=== PATIENT | male | born 1960 | race Caucasian/White ===

== ENCOUNTER 2016-05-18 13:53 | Inpatient (IN) | payer BC ==
[2016-05-18 13:53] VITALS: BMI 37.8
--- NOTE | 2016-05-18 14:27 | ED PDOC ---
Arrival/HPI - General Chief Complaint: Abnormal Skin Integrity Time Seen by Provider: 05/18/16 14:09 Historian: Patient - History of Present Illness Narrative History of Present Illness (Text): 05/18/16 14:25 55yo male with PMhx significant for hypertension, diabetes and hypercholestrol who present with 4days history of worsening scrotal pain and redness. He reports fever. He notes that his symptoms started after scratching the area with his dirty hands. 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 States he did not take any medication. denies abdominal pain, nausea, vomiting, diarrhea, constipation, chest pain, urinary symptoms, any other complaint. Past Medical History - Provider Review Nursing Documentation Reviewed: Yes - Past History Past History: Non-Contributing - Infectious Disease Hx of Infectious Diseases: None - Cardiac Hx Hypertension: Yes - Endocrine/Metabolic Hx Diabetes Mellitus Type 2: Yes - Musculoskeletal/Rheumatological Hx Falls: No - Psychiatric Hx Psychophysiologic Disorder: No Hx Anxiety: No Hx Bipolar Disorder: No Hx Depression: No Hx Emotional Abuse: No Hx Hallucinations: No Hx Panic Disorder: No Hx Post Traumatic Stress Disorder: No Hx Psychosis: No Hx Physical Abuse: No Hx Schizophrenia: No Hx Sexual Abuse: No Hx Substance Use: No - Anesthesia Hx Anesthesia Reactions: No Hx Malignant Hyperthermia: No Family/Social History - Physician Review Nursing Documentation Reviewed: Yes Family/Social History: Unknown Family HX Smoking Status: Never Smoked Hx Alcohol Use: No Hx Substance Use: No Allergies/Home Meds Allergies/Adverse Reactions: Allergies No Known Allergies Allergy (Verified 05/18/16 20:38) Home Medications: Home Meds Medication Instructions Recorded Confirmed Aspirin [Ecotrin] 81 mg PO DAILY 05/18/16 05/18/16 Atenolol [Tenormin] 50 mg PO DAILY 05/18/16 05/18/16 Lisinopril [Zestril] 20 mg PO DAILY 05/18/16 05/18/16 Omeprazole 20 mg PO DAILY 05/18/16 05/18/16 metFORMIN [glucOPHAGE] 1,000 mg PO BID 05/18/16 05/18/16 Review of Systems - Physician Review All systems were reviewed & negative as marked: Yes - Review of Systems Constitutional: Normal Eyes: Normal ENT: Normal Respiratory: Normal Cardiovascular: Normal Gastrointestinal: Normal Genitourinary Male: Other (Scrotal pain/swelling). absent: Dysuria, Frequency, Hematuria Musculoskeletal: Normal Skin: Normal Neurological: Normal Endocrine: Normal Hemo/Lymphatic: Normal Psychiatric: Normal Physical Exam Vital Signs Reviewed: Yes Vital Signs Temp Pulse Resp BP Pulse Ox 05/18/16 20:02 99.5 F 05/18/16 19:58 84 16 137/76 96 05/18/16 17:59 64 18 125/69 97 05/18/16 16:48 99.8 F H 60 17 129/73 97 05/18/16 15:26 91 H 18 138/79 97 05/18/16 13:58 101.2 F H 99 H 16 142/87 97 Temperature: Febrile Blood Pressure: Normal Respiratory Rate: Normal Appearance: Positive for: Well-Appearing, Non-Toxic, Comfortable Pain Distress: None Mental Status: Positive for: Alert and Oriented X 3 - Systems Exam Head: Present: Atraumatic, Normocephalic Pupils: Present: PERRL Extroacular Muscles: Present: EOMI Conjunctiva: Present: Normal Mouth: Present: Moist Mucous Membranes Neck: Present: Normal Range of Motion Respiratory/Chest: Present: Clear to Auscultation, Good Air Exchange. No: Respiratory Distress, Accessory Muscle Use Cardiovascular: Present: Regular Rate and Rhythm, Normal S1, S2. No: Murmurs Abdomen: Present: Normal Bowel Sounds. No: Tenderness, Distention, Peritoneal Signs Genitourinary Male: Present: Testicle Tenderness, Erythema (Testicular eythema with induration on b/l area. No crepitus. No gangrene noted), Testicle Swelling Back: Present: Normal Inspection Upper Extremity: Present: Normal Inspection. No: Cyanosis, Edema Lower Extremity: Present: Normal Inspection. No: Edema Neurological: Present: GCS=15, CN II-XII Intact, Speech Normal Skin: Present: Warm, Dry, Normal Color. No: Rashes Psychiatric: Present: Alert, Oriented x 3, Normal Insight, Normal Concentration Medical Decision Making ED Course and Treatment: 05/20/16 19:14 Pt presented for stated history. He was febrile on arrival. Notes multiple co morbidities. Have leukocytosis with a shift. He was admitted for IV abx. Case was DW Dr. Palma who was covering for Dr. Giraldo and pt was admitted. Pt was also seen in ED by Dr. Santillan. Result and plan was DW the pt and he agreed. - Lab Interpretations Microbiology Results: Microbiology Results 05/18/16 15:00 Blood-Venous Blood Culture - Preliminary NO GROWTH AFTER 48 HOURS 05/18/16 14:30 Blood-Venous Blood Culture - Preliminary NO GROWTH AFTER 48 HOURS Lab Results: 05/18/16 15:00 05/18/16 15:00 Lab Results 05/18/16 15:00: WBC 15.7 H D, RBC 4.70, Hgb 12.4 L, Hct 37.1 L, MCV 78.9 L, MCH 26.4, MCHC 33.4, RDW 14.3, Plt Count 238, MPV 10.8, Gran % 81.8 H, Lymph % (Auto ) 7.8 L, [place] % (Auto) 9.7 H, Eos % (Auto) 0.6 L, Baso % (Auto) 0.1, Gran # 12.85 H, Lymph # 1.2, [place] # 1.5 H, Eos # 0.1, Baso # 0.02, Sodium 138, Potassium 4.0, Chloride 98, Carbon Dioxide 27, Anion Gap 17, BUN 17, Creatinine 0.7, Est GFR ( Amer) > 60, Est GFR (Non-Af Amer) > 60, Random Glucose 170 H, Calcium 9.0, Total Bilirubin 1.5 H, AST 34, ALT 33, Alkaline Phosphatase 87, Total Protein 8.0, Albumin 4.0, Globulin 4.0, Albumin/Globulin Ratio 1.0 L, Urine Color Yellow, Urine Appearance Clear, Urine pH 6.0, Ur Specific [place] 1.025, Urine Protein 30 H, Urine Glucose (UA) 250 H, Urine Ketones Trace H, Urine Blood Negative, Urine Nitrate Negative, Urine Bilirubin Negative, Urine Urobilinogen 4.0 H, Ur Leukocyte Esterase Negative, Urine RBC Negative, Urine WBC 1 - 3, Urine Bacteria Few - RAD Interpretation Radiology Orders: 05/18/16 14:19 TESTES DUPLEX COMPLETE [US] Stat - Medication Orders Current Medication Orders: Aspirin (Ecotrin) 81 mg PO DAILY [facility] Last Admin: 05/20/16 09:32 Dose: 81 MG Atenolol (Tenormin) 50 mg PO DAILY [facility] Last Admin: 05/20/16 09:32 Dose: 50 MG MAR Pulse and Blood Pressure Document 05/20/16 09:32 EP (Rec: 05/20/16 09:35 EP [id number]) Pulse Pulse Rate (60-90) 87 Blood Pressure Blood Pressure (100/60-150/90) 167/87 Sodium Chloride (Sodium Chloride 0.45%) 1,000 mls @ 40 mls/hr IV .Q24H [facility] Last Admin: 05/20/16 12:32 Dose: Ceftaroline Fosamil 400 mg/ (Sodium Chloride) 100 mls @ 100 mls/hr IVPB Q12 [facility] PRN Reason: Protocol Stop: 05/26/16 22:16 Last Admin: 05/20/16 03:19 Dose: 100 MLS/HR eMAR Start Stop Document 05/20/16 03:19 MJ (Rec: 05/20/16 03:19 MJ [id number]) Intravenous Solution Start Date 05/20/16 Start Time 00:40 Insulin Human Regular (Humulin R High) 0 units SC ACHS [facility] PRN Reason: Protocol Last Admin: 05/20/16 16:51 Dose: Not Given Non-Admin Reason: Blood Sugar Parameter [facility] Blood Glucose Document 05/20/16 16:51 EP (Rec: 05/20/16 16:51 EP [id number]) Blood Glucose Finger Stick Blood Glucose (70-120) 149 Lisinopril (Zestril) 20 mg PO DAILY [facility] Last Admin: 05/20/16 09:32 Dose: 20 MG Metformin HCl (Glucophage) 1,000 mg PO BID [facility] Last Admin: 05/20/16 17:37 Dose: 1,000 MG Morphine Sulfate (Morphine) 2 mg IVP Q4H PRN PRN Reason: Pain, moderate (4-7) Last Admin: 05/20/16 07:52 Dose: 2 MG [facility] Pain Assessment Document 05/20/16 07:52 EP (Rec: 05/20/16 07:52 EP [id number]) Pain Reassessment Is this a pain reassessment? No Sleep Is patient sleeping during reassessment? No Presence of Pain Presence of Pain Yes Pain Scale Used Pain Scale Used Numeric Description Description Intermittent Intensity of Pain at present 6 Pain Behavior Restlessness Aggravating Factors ADL's Alleviating Factors/Management Medication Techniques IVP Administration Document 05/20/16 07:52 EP (Rec: 05/20/16 07:52 EP [id number]) Charges for Administration # of IVP Administrations 1 Re-Assess: VIVIAN Pain Assessment Document 05/20/16 08:52 EP (Rec: 05/20/16 09:32 EP [id number]) Pain Reassessment Is this a pain reassessment? Yes Sleep Is patient sleeping during reassessment? No Presence of Pain Presence of Pain No Pantoprazole Sodium (Protonix Ec Tab) 40 mg PO DAILY [facility] Last Admin: 05/20/16 09:32 Dose: 40 MG Sitagliptin Phosphate (Januvia) 100 mg PO DAILY [facility] Last Admin: 05/20/16 09:32 Dose: 100 MG Discontinued Medications Acetaminophen (Tylenol 325mg Tab) 650 mg PO STAT STA Stop: 05/18/16 14:23 Last Admin: 05/18/16 15:00 Dose: 650 MG Ceftriaxone Sodium (Rocephin 1 Gram Ivpb) 100 mls @ 200 mls/hr IVPB STAT STA PRN Reason: Protocol Stop: 05/18/16 17:22 Last Admin: 05/18/16 17:10 Dose: 200 MLS/HR eMAR Start Stop Document 05/18/16 17:10 SF (Rec: 05/18/16 17:10 SF [id number]) Intravenous Solution Start Date 05/18/16 Start Time 17:10 End Date 05/18/16 End time 17:40 Total Infusion Time 30 Vancomycin HCl (Vancomycin 1gm) 250 mls @ 167 mls/hr IVPB STAT STA PRN Reason: Protocol Stop: 05/18/16 18:19 Last Admin: 05/18/16 17:49 Dose: 167 MLS/HR eMAR Start Stop Document 05/18/16 17:49 SF (Rec: 05/18/16 17:49 SF [id number]) Intravenous Solution Start Date 05/18/16 Start Time 17:49 End Date 05/18/16 End time 18:19 Total Infusion Time 30 Ceftriaxone Sodium (Rocephin 1 Gram Ivpb) 100 mls @ 100 mls/hr IVPB DAILY [facility] PRN Reason: Protocol Last Admin: 05/19/16 10:33 Dose: 100 MLS/HR eMAR Start Stop Document 05/19/16 10:33 MB (Rec: 05/19/16 10:34 MB [id number]) Intravenous Solution Start Date 05/19/16 Start Time 10:33 End Date 05/19/16 End time 11:33 Total Infusion Time 60 Morphine Sulfate (Morphine) 4 mg IVP STAT STA Stop: 05/18/16 16:55 Last Admin: 05/18/16 17:09 Dose: 4 MG MAR Pain Assessment Document 05/18/16 17:09 (Rec: 05/18/16 17:10 [id number] Pain Reassessment Is this a pain reassessment? Yes Pain Scale Used Pain Scale Used Numeric IVP Administration Document 05/18/16 17:09 SF (Rec: 05/18/16 17:10 [email or web address]) Charges for Administration # of IVP Administrations 1 Pneumococcal Polyvalent Vaccine (Pneumovax 23 Vaccine) 0.5 ml IM .ONCE ONE Stop: 05/18/16 22:51 Disposition/Present on Arrival - Present on Arrival Any Indicators Present on Arrival: No History of DVT/PE: No History of Uncontrolled Diabetes: No Urinary Catheter: No History of Decub. Ulcer: No History Surgical Site Infection Following: None - Disposition Have Diagnosis and Disposition been Completed?: Yes Diagnosis: Cellulitis Disposition: HOSPITALIZED Disposition Time: 16:05 Patient Problems: Current Active Problems Problem Status Diagnosed Cellulitis Acute Condition: FAIR
[2016-05-18 15:40] LABS: ADD MANUAL DIFF? NO
[2016-05-18 15:50] LABS: BASO # 0.02 K/mm3 (0.0-2.0); BASO % 0.1 % (0.0-3.0); EOS # 0.1 (0.0-0.7); EOS % 0.6 % (1.5-5.0); GRAN # 12.85 (1.4-6.5); GRAN % 81.8 % (50.0-68.0); HEMATOCRIT 37.1 % (42.0-52.0); LYMPH # 1.2 (1.2-3.4); LYMPH % 7.8 % (22.0-35.0); MEAN CELL VOLUME 78.9 fL (80.0-105.0); MEAN CORPUSCULAR HEMOGLOBIN 26.4 pg (25.0-35.0); MEAN CORPUSCULAR HGB CONC 33.4 g/dl (31.0-37.0); MEAN PLATELET VOLUME 10.8 fl (7.0-11.0); MONO # 1.5 (0.1-0.6); MONO % 9.7 % (1.0-6.0); PLATELET COUNT 238 10^3/uL (120.0-450.0); RED CELL DISTRIBUTION WIDTH 14.3 % (11.5-14.5); WHITE BLOOD COUNT 15.7 10^3/ul (4.5-11.0)
[2016-05-18 15:54] LABS: URINE BILIRUBIN NEGATIVE (NEGATIVE); URINE BLOOD NEGATIVE (NEGATIVE); URINE GLUCOSE (UA) 250 mg/dL (NEGATIVE); URINE KETONE TRACE mg/dL (NEGATIVE); URINE LEUKOCYTE ESTERASE NEGATIVE Leu/uL (NEGATIVE); URINE PROTEIN 30 mg/dL (<30 mg/dL)
[2016-05-18 15:57] LABS: URINE APPEARANCE CLEAR (CLEAR); URINE COLOR YELLOW (YELLOW)
[2016-05-18 16:04] LABS: ALKALINE PHOSPHATASE 87 U/L (38-133); ALT/SGPT 33 U/L (7-56); AST/SGOT 34 U/L (15-59); BILIRUBIN,TOTAL 1.5 mg/dL (0.2-1.3); BLOOD UREA NITROGEN 17 mg/dL (7-21); CARBON DIOXIDE 27 mmol/L (21-33); CHLORIDE 98 mmol/L (98-107); GFR AFRICAN-AMERICAN > 60; GLUCOSE,RANDOM 170 mg/dL (70-110); SODIUM 138 mmol/L (132-148)
[2016-05-18 16:07] LABS: URINE BACTERIA FEW (NEG); URINE RBC NEGATIVE /hpf (0-2)
--- NOTE | 2016-05-18 16:22 | US ---
HISTORY: scrotal pain/swelling TECHNIQUE: Realtime sonography through the scrotum with color and doppler flow. COMPARISON: None Available. FINDINGS: RIGHT TESTICLE: Measures 4.6 x 4.0 x 2.9 cm. Homogeneous echotexture. No mass. Normal flow. RIGHT EPIDIDYMIS: Normal size and morphology. Normal flow. LEFT TESTICLE: Measures 3.5 x 2.9 x 2.9 cm. Homogeneous echotexture. No mass. Normal flow. . LEFT EPIDIDYMIS: Normal size and morphology. HYDROCELE: Mild bilateral complex hydrocele. VARICOCELE: None. OTHER FINDINGS: None. IMPRESSION: Mild bilateral complex hydrocele. No additional abnormality. No evidence of testicular torsion or epididymo-orchitis.
[2016-05-18] MEDS ORDERED: Vancomycin 1gm in NS 250ml 250 ML IVPB STA (16:50)
[2016-05-18] MEDS ORDERED: cefTRIAXone 1 gm 100 ML IVPB STA (16:53)
[2016-05-18] MEDS ORDERED: Morphine 4 mg/ml ISec IVP STA (16:54)
--- NOTE | 2016-05-18 19:53 | CON ---
DATE: 05/18/2016 HISTORY OF PRESENT ILLNESS: The patient is a 55-year-old non-insulin dependent diabetic with a histo ry of hypertension and high cholesterol. He had 4 days of scrotal pain and swelling. He said he had been scratching the scrotum. He now came in with a white count of 15,000. No prior urologic histor y. He voids well, although he does complain of having phimosis. PAST MEDICAL HISTORY: Significant for hypertension, type 2 diabetes. ALLERGIES: He has no allergies. MEDICATIONS: At home he takes metformin, omeprazole, Zestril, Tenormin and Ecotrin. FAMILY HISTORY: Noncontributory. SOCIAL HISTORY: He does not smoke or drink. REVIEW OF SYSTEMS: No symptoms referable to the head, eyes, ears, nose or throat. No cardiac, respi ratory symptoms. No GI symptoms. No psychiatric or musculoskeletal symptoms. PHYSICAL EXAMINATION: VITAL SIGNS: Shows him to be a temperature of 101.2 when he came in. Pulse 64, blood pressure 125/6 9, respirations 18. HEENT: Normocephalic, sclerae clear. Conjunctivae not injected. ABDOMEN: No CVA pain. No hepatosplenomegaly, rebound or guarding. No suprapubic fullness. GENITALIA: He has phimosis. Testicles down. Scrotum has no crepitus and no necrotic areas. There is some induration and cellulitis on the right lateral aspect of the right scrotal wall on the left s mick, similar finding on the lateral aspect. There was a very tiny area of fluctuance. LABORATORY DATA: Shows a white count 15,700, creatinine is 0.7. His urine shows 250 mg of glucose, negative red cells, 1-3 WBCs. He is on Rocephin, received 1 gram of vancomycin. IMPRESSION: This is scrotal cellulitis. I think it will improve with IV antibiotics. The area on t he left side may need drainage, but right now it is very small and I will see how it is in [facility]. We will follow him with you. Julio Fischer MD cc: [id number] TT: 05/18/2016 19:52:03 Confirmation # [id number] Dictation # [id number] jn
[2016-05-18] MEDS ORDERED: Pneumococcal 23-Valent Vaccine IM ONE (22:50)
[2016-05-19] MEDS ORDERED: cefTRIAXone 1 gm 100 ML IVPB SCH (10:00)
--- NOTE | 2016-05-19 10:37 | PN ---
DATE: 05/19/2016 The patient is feeling much more comfortable after 24 hours of IV antibiotics. He is afebrile. He h as less tenderness in the scrotum. The scrotum itself shows no erythema, no crepitus, no discolorati on or any evidence of any necrotic tissue. There is still induration on the right and left lateral a spects of the scrotum, but much less tender. There is a very tiny fluctuant area on the left side th at I do not think requires any drainage at this time. He will continue having Sitz baths. White cou nt is reported for tomorrow. If he continues to do well, he should be able to be discharged on p.o. antibiotics. If I feel when I see him tomorrow that the area of fluctuance needs to be opened, I peggy l just berta it at the bedside. A testicular ultrasound was done and showed the testicles themselves to be normal. I do not think there is any intratesticular pathology going on here, just the celluli tis from the patient having scratched his scrotum and causing a cellulitis. We will follow him with you. Julio Fischer MD cc: [phone] TT: 05/19/2016 10:37:28 Confirmation # [id number] Dictation # [id number] en
[2016-05-19] MEDS: Sodium Chloride 0.45% 1,000 ML IV SCH (10:50)
--- NOTE | 2016-05-19 11:04 | HP ---
I saw him resting in bed at [facility]. He comes in being a 55-year-old man. Reports fe marielena, scratching in the scrotal area with dirty hands from work. 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 His testicles are inflamed, got red and painful. PAST MEDICAL HISTORY: Hypertension, diabetes, high cholesterol, and now has worsening scrotal pain, redness, and swelling. He has had hypertension, type 2 diabetes. He is very uncomfortable. He has hypertension and diabetes in the family. Never smoked. No drinking, no alcohol. He has no drug allergies. He takes Ecotrin, Tenormin, Zestril, omeprazole, and Glucophage. He has no vision changes, no hearing changes. No sore throat. No neck pain. No dizziness, no heada edita. No chest pain, no shortness of breath, no palpitations. No cough and no congestion, no fever. No abdominal pain, but there is scrotal swelling, and redness and pain in his scrotum from where he scratched. He has got no extremity issues. Skin is okay except for the scrotal area. He has no dizz iness or headaches. No depression, anxiety. PHYSICAL EXAMINATION: He has got a 101.2 temp, 99 pulse, 16 respiratory rate, 142/87 blood pressure, 97% O2 sat on room air . HEAD: Atraumatic, normocephalic. His extraocular muscles are intact. Pupils equal, reactive to lig ht and accommodation. Throat is moist, no erythema. HEART: Regular rate. LUNGS: Clear to auscultation. ABDOMEN: Soft, obese, nontender, positive bowel. He is alert and oriented x 3. Extraocular muscles are intact. His scrotal area is swollen and red. It is tender. It has areas of tenderness and swelling. EXTREMITIES: Have no edema. GCS is 15. Cranial nerves II-XII grossly intact. Alert and oriented x 3. He had a 15.7 white count, 12.4 hemoglobin, 37.1 hematocrit, with 238 platelets. He has a 138 sodium , potassium 4, BUN 17, creatinine 0.7. GFR is greater than 60. Sugar is 230 and 270. I put him mikayla k on his medications and insulin coverage. Calcium is 9, total bili is 1.5. AST is 34, ALT is 33, a lk phos is 87, total protein is 8. Urine is trace ketones. He had a testicular ultrasound which showed mild bilateral complex hydrocele. No additional abnormal ity. No torsion. He will have a consult with urology and infectious disease, we put on IV antibiotics. He is on vanco and Rocephin. Will check his labs tomorrow. IV fluids. Hopefully, he will improve. I put him on insulin coverage. Jay Giraldo DO cc: [id number] TT: 05/19/2016 11:03:26 jn
[2016-05-19] MEDS: Insulin Reg-HIGH-Coverage SC SCH ×3 (16:41→22:38)
[2016-05-19] MEDS: Morphine 2 mg/ml ISec IVP PRN (17:36)
--- NOTE | 2016-05-19 22:22 | CP.PCM.CON ---
History of Present Illness - History of Present Illness History of Present Illness: 55 year old male with PMH of HTN, DM, dyslipidemia, obesity with BMI 38, history of MSSA left upper back abscess S/P I and D came in complaining of increasing scrotal swelling, right more than the left, associated with erythema which started about 4-5 days ago. 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 He remembers a time when he scratched his scrotal area with unwashed hands. He denies animal contacts, no insect bites , no travel to wooded areas, no swimming. He denies fever or chills, no urinary symptoms, no penile discharge, no nausea or vomiting, no chest pain, no SOB, no diarrhea. Infectious Diseases consult is requested to further evaluate and manage. Review of Systems - Review of Systems All systems: reviewed and no additional remarkable complaints except (as per HPI ) Past Patient History - Infectious Disease Hx of Infectious Diseases: None - Past Social History Smoking Status: Current Some Days Smoker Alcohol: Occasional Drugs: Denies Home Situation {Lives}: With Family - CARDIAC Hx Cardiac Disorders: Yes Hx Hypercholesterolemia: Yes Hx Hypertension: Yes - PULMONARY Hx Respiratory Disorders: Yes (SMOKES 2 PPD CIGARETTES) - NEUROLOGICAL Hx Neurological Disorder: No - HEENT Hx HEENT Problems: No - RENAL Hx Chronic Kidney Disease: No - ENDOCRINE/METABOLIC Hx Endocrine Disorders: Yes Hx Diabetes Mellitus Type 2: Yes - HEMATOLOGICAL/ONCOLOGICAL Hx Blood Disorders: No - INTEGUMENTARY Hx Dermatological Problems: Yes (CHRONIC ABSCESSES TO BACK,RIGHT THIGH.) - MUSCULOSKELETAL/RHEUMATOLOGICAL Hx Musculoskeletal Disorders: No Hx Falls: No - GASTROINTESTINAL Hx Gastrointestinal Disorders: Yes Hx Gastroesophageal Reflux: Yes - GENITOURINARY/GYNECOLOGICAL Hx Genitourinary Disorders: Yes Hx Prostate Problems: Yes (SCROTAL CELLULITIS 05-18-16) - PSYCHIATRIC Hx Psychophysiologic Disorder: Yes (SMOKES CIGARETTES,DRINKS BEER WEEKENDS) Hx Anxiety: No Hx Bipolar Disorder: No Hx Depression: No Hx Emotional Abuse: No Hx Hallucinations: No Hx Panic Symptoms: No Hx Post Traumatic Stress Disorder: No Hx Psychosis: No Hx Physical Abuse: No Hx Schizophrenia: No Hx Sexual Abuse: No Hx Substance Use: No - SURGICAL HISTORY Hx Surgeries: No - ANESTHESIA Hx Anesthesia Reactions: No Hx Malignant Hyperthermia: No Meds Allergies/Adverse Reactions: Allergies Allergy/AdvReac Type Severity Reaction Status Date / Time No Known Allergies Allergy Verified 05/18/16 20:38 - Medications Medications: Current Medications Aspirin (Ecotrin) 81 mg PO DAILY [facility] Atenolol (Tenormin) 50 mg PO DAILY [facility] Ceftriaxone Sodium (Rocephin 1 Gram Ivpb) 100 mls @ 100 mls/hr IVPB DAILY [facility] PRN Reason: Protocol Sodium Chloride (Sodium Chloride 0.45%) 1,000 mls @ 40 mls/hr IV .Q24H [facility] Insulin Human Regular (Humulin R High) 0 units SC ACHS [facility] PRN Reason: Protocol Lisinopril (Zestril) 20 mg PO DAILY [facility] Metformin HCl (Glucophage) 1,000 mg PO BID [facility] Morphine Sulfate (Morphine) 2 mg IVP Q4H PRN PRN Reason: Pain, moderate (4-7) Pantoprazole Sodium (Protonix Ec Tab) 40 mg PO DAILY [facility] Sitagliptin Phosphate (Januvia) 100 mg PO DAILY [facility] Physical Exam - Constitutional Appears: Non-toxic, No Acute Distress - Head Exam Head Exam: NORMAL INSPECTION - ENT Exam ENT Exam: Mucous Membranes Moist - Neck Exam Neck exam: Negative for: Lymphadenopathy, Meningismus - Respiratory Exam Respiratory Exam: Decreased Breath Sounds - Cardiovascular Exam Cardiovascular Exam: +S1, +S2 - GI/Abdominal Exam GI & Abdominal Exam: Soft. absent: Tenderness - Exam Exam: Scrotal Swelling (right greater than left, with erythema and tenderness noted) Results - Vital Signs Recent Vital Signs: Last Vital Signs Temp 98.9 F 05/19/16 08:00 Pulse 96 H 05/19/16 08:00 Resp 20 05/19/16 08:00 BP 135/76 05/19/16 08:00 Pulse Ox 96 05/19/16 08:00 - Labs Result Diagrams: 05/18/16 15:00 05/18/16 15:00 Labs: Laboratory Results - last 24 hr 05/18/16 05/19/16 21:44 07:22 POC Glucose (mg/dL) 230 H 270 H Assessment & Plan - Assessment and Plan (Free Text) Plan: Assessment Sepsis secondary to scrotal skin and skin structure infection; no evidence of epidydimo-orchitis HTN DM dyslipidemia obesity with BMI 38 history of MSSA left upper back abscess S/P I and D Plan Started the patient on Teflaro pending blood cx; reviewed ultrasound of the testes which did not show epidydimo-orchitis Will monitor clinical response
[2016-05-20] MEDS: Morphine 2 mg/ml ISec IVP PRN ×3 (03:20→21:56)
[2016-05-20 07:40] LABS: HEMATOCRIT 36.6 % (42.0-52.0); MEAN CELL VOLUME 79.4 fL (80.0-105.0); MEAN CORPUSCULAR HGB CONC 32.8 g/dl (31.0-37.0); MEAN PLATELET VOLUME 10.6 fl (7.0-11.0); RED CELL DISTRIBUTION WIDTH 14.3 % (11.5-14.5)
[2016-05-20 07:46] LABS: ALB/GLOB RATIO 0.9 (1.1-1.8); ALKALINE PHOSPHATASE 86 U/L (38-133); ALT/SGPT 31 U/L (7-56); AST/SGOT 25 U/L (15-59); BLOOD UREA NITROGEN 13 mg/dL (7-21); CALCIUM 8.8 mg/dL (8.4-10.5); CARBON DIOXIDE 29 mmol/L (21-33); CHLORIDE 101 mmol/L (95-110); GFR AFRICAN-AMERICAN > 60; GLUCOSE,RANDOM 138 mg/dL (70-110); POTASSIUM 4.2 mmol/L (3.6-5.0); SODIUM 138 mmol/L (132-148); TOTAL PROTEIN 7.6 g/dL (5.8-8.3)
[2016-05-20] MEDS: Insulin Reg-HIGH-Coverage SC SCH ×4 (07:53→21:51)
[2016-05-20] MEDS: Pantoprazole 40 mg EC Tab PO SCH (09:32)
--- NOTE | 2016-05-20 09:56 | PN ---
DATE: 05/20/2016 The patient seen and examined at bedside. Currently, at this point he is tolerating IV antibiotics. He still has some discomfort to the scrotal area and has been having fevers and chills over the cour se at night. PHYSICAL EXAMINATION: VITAL SIGNS: Blood pressure at this point is 136/80, pulse rate of 87, temperature is 98.7, O2 satur ation is 97 on room air. HEENT: Normocephalic, atraumatic. [place] conjunctivae, nonicteric sclerae. NECK: No JVD. No thyromegaly. CARDIOVASCULAR: Regular rate and rhythm. S1, S2 appreciated. ABDOMEN: Soft, nontender. Positive bowel sounds. There is erythema to the scrotal area and is swol ingrid and tender. EXTREMITIES: Peripheral pulses +2 with no pitting edema. LABORATORY DATA: WBCs are still elevated at 13.0, hemoglobin of 12.2, hematocrit of 36.6, platelets of 261. Chemistry and LFTs within normal limits. Blood cultures at this point finally appear to be negative. ASSESSMENT: 1. Scrotal cellulitis. 2. Hypertension. 3. Diabetes mellitus. 4. Elevated lipids. 5. Recurrent fevers and chills. We will continue to follow this patient very closely with IV fluids as well as pain management and no sheila that the ID doctor has changed his medication to Teflaro. Will follow very closely. Salty Palma MD cc: [id number] TT: 05/20/2016 09:55:19 Confirmation # [id number] Dictation # [id number]
[2016-05-20] MEDS: Sodium Chloride 0.45% 1,000 ML IV SCH (12:32)
--- NOTE | 2016-05-20 15:40 | CP.PCM.PN ---
Subjective - Date & Time of Evaluation Date of Evaluation: 05/20/16 Time of Evaluation: 14:55 - Subjective Subjective: Comfortable in bed, not in distress, less swelling and pain in the scrotal area but still feels pressure. No fevers overnight. Objective - Vital Signs/Intake and Output Vital Signs (last 24 hours): Temp Pulse Resp BP Pulse Ox 98.5 F 87 20 167/87 H 97 05/20/16 07:45 05/20/16 09:32 05/20/16 07:45 05/20/16 09:32 05/20/16 07:45 Intake and Output: 05/20/16 05/20/16 06:59 18:59 Intake Total 420 620 Balance 420 620 - Medications Medications: Current Medications Aspirin (Ecotrin) 81 mg PO DAILY [facility] Last Admin: 05/20/16 09:32 Dose: 81 mg Atenolol (Tenormin) 50 mg PO DAILY [facility] Last Admin: 05/20/16 09:32 Dose: 50 mg Sodium Chloride (Sodium Chloride 0.45%) 1,000 mls @ 40 mls/hr IV .Q24H [facility] Last Admin: 05/20/16 12:32 Dose: Not Given Ceftaroline Fosamil 400 mg/ (Sodium Chloride) 100 mls @ 100 mls/hr IVPB Q12 [facility] PRN Reason: Protocol Stop: 05/26/16 22:16 Last Admin: 05/20/16 03:19 Dose: 100 mls/hr Insulin Human Regular (Humulin R High) 0 units SC ACHS [facility] PRN Reason: Protocol Last Admin: 05/20/16 12:23 Dose: 2 units Lisinopril (Zestril) 20 mg PO DAILY [facility] Last Admin: 05/20/16 09:32 Dose: 20 mg Metformin HCl (Glucophage) 1,000 mg PO BID [facility] Last Admin: 05/20/16 09:32 Dose: 1,000 mg Morphine Sulfate (Morphine) 2 mg IVP Q4H PRN PRN Reason: Pain, moderate (4-7) Last Admin: 05/20/16 07:52 Dose: 2 mg Pantoprazole Sodium (Protonix Ec Tab) 40 mg PO DAILY [facility] Last Admin: 05/20/16 09:32 Dose: 40 mg Sitagliptin Phosphate (Januvia) 100 mg PO DAILY [facility] Last Admin: 05/20/16 09:32 Dose: 100 mg - Labs Labs: 05/20/16 07:29 05/20/16 07:29 - Constitutional Appears: Non-toxic, No Acute Distress - Head Exam Head Exam: NORMAL INSPECTION - ENT Exam ENT Exam: Mucous Membranes Moist - Neck Exam Neck Exam: absent: Lymphadenopathy, Meningismus - Respiratory Exam Respiratory Exam: Decreased Breath Sounds - Cardiovascular Exam Cardiovascular Exam: +S1, +S2 - GI/Abdominal Exam GI & Abdominal Exam: Soft. absent: Tenderness - Exam Exam: Scrotal Swelling (decreased, still with some induration noted on the right scrotal area) Assessment and Plan - Assessment and Plan (Free Text) Plan: Assessment Sepsis secondary to scrotal skin and skin structure infection; no evidence of epidydimo-orchitis HTN DM dyslipidemia obesity with BMI 38 history of MSSA left upper back abscess S/P I and D Plan Started the patient on Teflaro day 2 pending final blood cx results; reviewed ultrasound of the testes which did not show epidydimo-orchitis Will continue to monitor clinical response; reviewed Urology recommendations - continue warm sitz baths
--- NOTE | 2016-05-20 16:57 | PN ---
DATE: 05/20/2016 The patient is feeling better. His white count has come down to 13,000. He is on ceftaroline for hi s cellulitis. Inspection of the scrotum shows less tenderness. A small area of fluctuance has devel oped on the right lateral side and left lateral side. No necrotic tissue, no crepitus. I am going t o let the patient have another day of antibiotics and then tomorrow at the bedside I will just berta the small fluctuant area. I do not think there is much purulent material in there, but I will open t hat up and pack it with iodoform. Awaiting the cultures. Julio Fischer MD cc: [id number] TT: 05/20/2016 16:56:21 Confirmation # [id number] Dictation # [id number] marie
[2016-05-21 07:42] LABS: ADD MANUAL DIFF? NO
[2016-05-21 07:46] LABS: BASO # 0.03 K/mm3 (0.0-2.0); BASO % 0.3 % (0.0-3.0); EOS # 0.3 (0.0-0.7); EOS % 2.7 % (1.5-5.0); GRAN # 8.23 (1.4-6.5); GRAN % 74.8 % (50.0-68.0); HEMATOCRIT 37.9 % (42.0-52.0); LYMPH # 1.4 (1.2-3.4); LYMPH % 12.8 % (22.0-35.0); MEAN CORPUSCULAR HEMOGLOBIN 26.5 pg (25.0-35.0); MEAN CORPUSCULAR HGB CONC 33.5 g/dl (31.0-37.0); MEAN PLATELET VOLUME 10.4 fl (7.0-11.0); MONO % 9.4 % (1.0-6.0); PLATELET COUNT 289 10^3/uL (120.0-450.0); RED CELL DISTRIBUTION WIDTH 14.1 % (11.5-14.5)
[2016-05-21 08:01] LABS: ALB/GLOB RATIO 0.9 (1.1-1.8); ALKALINE PHOSPHATASE 92 U/L (38-133); ALT/SGPT 33 U/L (7-56); AST/SGOT 31 U/L (15-59); BILIRUBIN,TOTAL 0.9 mg/dL (0.2-1.3); BLOOD UREA NITROGEN 13 mg/dL (7-21); CALCIUM 9.1 mg/dL (8.4-10.5); CARBON DIOXIDE 27 mmol/L (21-33); CHLORIDE 101 mmol/L (95-110); GFR AFRICAN-AMERICAN > 60; GLUCOSE,RANDOM 165 mg/dL (70-110); SODIUM 140 mmol/L (132-148)
[2016-05-21] MEDS: Insulin Reg-HIGH-Coverage SC SCH ×3 (08:28→16:35)
[2016-05-21] MEDS: Pantoprazole 40 mg EC Tab PO SCH (09:25)
[2016-05-21] MEDS: Sodium Chloride 0.45% 1,000 ML IV SCH (09:27)
[2016-05-21] MEDS ORDERED: Lidocaine 1% Inj (20ml) IJ STA (09:33)
[2016-05-21] MEDS ORDERED: HYDROmorphone 2 mg/ml ISec IVP STA (09:52)
--- NOTE | 2016-05-21 10:27 | OP ---
PROCEDURE DATE: 05/21/2016 PREOPERATIVE DIAGNOSIS: Bilateral scrotal abscess. POSTOPERATIVE DIAGNOSIS: Bilateral scrotal abscess. PROCEDURE: Incision and drainage of bilateral scrotal abscess. SURGEON: Julio Fischer M.D. ANESTHESIA: Local, 1% Xylocaine, approximately 8. DESCRIPTION OF PROCEDURE: At the bedside, the scrotum was prepped and draped in usual manner with Be tadine. There were fluctuant areas bilaterally on both lateral scrotums. The patient has been on IV antibiotics. There was no evidence of any erythema or crepitus. The attention was directed to the right side first, where the area around the fluctuant area was infiltrated with approximately 4 mL of 1% Xylocaine. An incision was made over the fluctuant area, pus drained from the cavity, which was cultured. The cavity was probed with hemostats to make sure the entire cavity was open and it was. Iodoform packing was then placed in the cavity and gauze dressings were applied. Attention was then directed to the left side, where similar findings were seen, 4 mL of 1% Xylocaine was infiltrated sarita und the most fluctuant area of the abscess cavity, which was then incised, again with drainage of a s ignificant amount of pus. The cavity was probed to make sure there were no loculated areas and Iodof orm packing was also placed in this cavity pocket. Gauze dressings were then applied with combines p laced on top of it and pressure dressing was applied. He tolerated the procedure well, got immediate relief after the procedure. He currently is on Teflaro, which is ceftaroline 400 mg q. 12 hours for the infection. The plan is to remove the packing if it stays in over a day or 2 and then he can be discharged on p.o. antibiotics. Julio Fischer MD cc: [phone] TT: 05/21/2016 10:27:10 en
--- NOTE | 2016-05-21 14:26 | PN ---
DATE: 05/21/2016 He is doing much better today than the last time I saw him. He is resting comfortably in bed, less pain. There is less swelling and he is starting to feel a little bit less pressure in the scrotum. It was opened up and I think the pressure and the pus and everything is coming out nicely. He is on IV antibiotics by infectious disease. I think it is also working. He is in good spirits and he is eating some. PHYSICAL EXAMINATION: VITAL SIGNS: Temp 99.2, it was 99.8 a little bit ago, 82 pulse, 164/89 blood pressure, 18 respiratory rate, 98% O2 sat on room air. HEENT: His head is atraumatic, normocephalic. His mouth is moist. NECK: Supple. HEART: Regular rate. LUNGS: Clear to auscultation. ABDOMEN: Soft, obese, nontender. EXTREMITIES: No edema. GENITALIA: His scrotum is less swollen. He has got packing in there from the I and D. He is on ceftaroline, Ecotrin, Glucophage, insulin, Januvia, morphine, Protonix , IV fluids, Tenormin, and Zestril. He has 11 white count, the best it has been, slowly coming down, 12.7 hemoglobin , 37.9 hematocrit with platelets. Sodium 140, potassium 4, BUN 13, creatinine 0.7, GFR is greater than 60, sugar is 165. Calcium is 9.1, total bili is 0.9, AST is 31, ALT is 33, alk phos is 92, total protein is 8. He is being seen by urology and infectious disease. We will continue with the IV antibiotics and the surgical treatment by urology. I am going to add Norvasc to his blood pressure mix to get his blood pressure down. Check his labs tomorrow and as per urology and infectious disease for IV antibiotics. The patient has got a severe scrotal infection, cellulitis and abscess. Jay Giraldo DO cc: [id number] TT: 05/21/2016 14:25:43 Confirmation # [id number] Dictation # [id number] en MTDD
--- NOTE | 2016-05-21 16:01 | CP.PCM.PN ---
Subjective - Date & Time of Evaluation Date of Evaluation: 05/21/16 Time of Evaluation: 14:10 - Subjective Subjective: Just had I and D today by Dr. Fischer. Patient is feeling better, no fevers, less pain in the scrotal area. Objective - Vital Signs/Intake and Output Vital Signs (last 24 hours): Temp Pulse Resp BP Pulse Ox 99.2 F 72 18 143/90 98 05/21/16 07:51 05/21/16 14:12 05/21/16 07:51 05/21/16 14:12 05/21/16 07:51 Intake and Output: 05/21/16 05/21/16 06:59 18:59 Intake Total 900 620 Output Total 1325 800 Balance -425 -180 - Medications Medications: Current Medications Amlodipine Besylate (Norvasc) 2.5 mg PO DAILY [facility] Last Admin: 05/21/16 14:12 Dose: 2.5 mg Aspirin (Ecotrin) 81 mg PO DAILY [facility] Last Admin: 05/21/16 09:27 Dose: Not Given Atenolol (Tenormin) 50 mg PO DAILY [facility] Last Admin: 05/21/16 09:26 Dose: 50 mg Sodium Chloride (Sodium Chloride 0.45%) 1,000 mls @ 40 mls/hr IV .Q24H [facility] Last Admin: 05/21/16 09:27 Dose: 40 mls/hr Ceftaroline Fosamil 400 mg/ (Sodium Chloride) 100 mls @ 100 mls/hr IVPB Q12 [facility] PRN Reason: Protocol Stop: 05/26/16 22:16 Last Admin: 05/21/16 09:26 Dose: 100 mls/hr Insulin Human Regular (Humulin R High) 0 units SC ACHS [facility] PRN Reason: Protocol Last Admin: 05/21/16 11:37 Dose: 1 units Lisinopril (Zestril) 20 mg PO DAILY [facility] Last Admin: 05/21/16 09:26 Dose: 20 mg Metformin HCl (Glucophage) 1,000 mg PO BID [facility] Last Admin: 05/21/16 09:25 Dose: 1,000 mg Morphine Sulfate (Morphine) 2 mg IVP Q4H PRN PRN Reason: Pain, moderate (4-7) Last Admin: 05/20/16 21:56 Dose: 2 mg Pantoprazole Sodium (Protonix Ec Tab) 40 mg PO DAILY [facility] Last Admin: 05/21/16 09:25 Dose: 40 mg Sitagliptin Phosphate (Januvia) 100 mg PO DAILY [facility] Last Admin: 05/21/16 09:25 Dose: 100 mg - Labs Labs: 05/21/16 07:40 05/21/16 07:40 - Constitutional Appears: Non-toxic, No Acute Distress - Head Exam Head Exam: NORMAL INSPECTION - ENT Exam ENT Exam: Mucous Membranes Moist - Neck Exam Neck Exam: absent: Lymphadenopathy, Meningismus - Respiratory Exam Respiratory Exam: Decreased Breath Sounds - Cardiovascular Exam Cardiovascular Exam: +S1, +S2 - GI/Abdominal Exam GI & Abdominal Exam: Soft. absent: Tenderness - Exam Exam: Scrotal Swelling (and with dry dressings in place) Assessment and Plan - Assessment and Plan (Free Text) Plan: Assessment Sepsis secondary to scrotal skin and skin structure infection with abscess formation; no evidence of epidydimo-orchitis; S/P I and D today HTN DM dyslipidemia obesity with BMI 38 history of MSSA left upper back abscess S/P I and D Plan Started the patient on Teflaro day 3 pending cultures from the scrotal abscess; reviewed ultrasound of the testes which did not show epidydimo-orchitis
[2016-05-21] MEDS: Morphine 2 mg/ml ISec IVP PRN ×2 (17:44→22:17)
[2016-05-22 06:10] LABS: HEMATOCRIT 38.4 % (42.0-52.0); MEAN CELL VOLUME 78.7 fL (80.0-105.0); MEAN CORPUSCULAR HEMOGLOBIN 26.4 pg (25.0-35.0); MEAN CORPUSCULAR HGB CONC 33.6 g/dl (31.0-37.0); MEAN PLATELET VOLUME 10.5 fl (7.0-11.0)
[2016-05-22 06:47] LABS: ALB/GLOB RATIO 0.9 (1.1-1.8); ALKALINE PHOSPHATASE 89 U/L (38-133); ALT/SGPT 30 U/L (7-56); AST/SGOT 26 U/L (15-59); BILIRUBIN,TOTAL 0.8 mg/dL (0.2-1.3); BLOOD UREA NITROGEN 14 mg/dL (7-21); CALCIUM 9.2 mg/dL (8.4-10.5); CARBON DIOXIDE 29 mmol/L (21-33); CHLORIDE 100 mmol/L (95-110); GFR AFRICAN-AMERICAN > 60; GLUCOSE,RANDOM 149 mg/dL (70-110); POTASSIUM 4.4 mmol/L (3.6-5.0); SODIUM 139 mmol/L (132-148)
[2016-05-22] MEDS: Insulin Reg-HIGH-Coverage SC SCH ×4 (08:04→23:08)
--- NOTE | 2016-05-22 08:56 | PN ---
DATE: 05/22/2016 I saw him resting in bed. He slept fairly well. He is feeling a little bit better in his testicles, no pain. He is on ceftaroline IV, Ecotrin, Glucophage, insulin, Januvia, morphine for pain, Norvasc, Protonix, IV fluids, Tenormin and Zestril. PHYSICAL EXAMINATION: VITAL SIGNS: Temp 98.2, 79 pulse, 154/92 blood pressure, a little bit high, 18 respiratory rate, 98% O2 sat on room air. HEENT: His head is atraumatic, normocephalic. The throat is moist. NECK: Supple. HEART: Regular rate. LUNGS: Decreased breath sounds, but clear to auscultation. ABDOMEN: Soft, obese, nontender. EXTREMITIES: No edema. GENITALIA: The scrotal area is less swollen. It is packed from urology. He is on Norvasc for blood pressure 2.5. I will increase it to 5 mg today. He has a 9 white count, best it has been, 12.9 hemoglobin, 38.4 hematocrit with 324 platelets. Sodiu m 139, potassium 4.4, BUN is 14, creatinine 0.7, GFR is greater than 60, sugar is 147, better, calciu m is 9.2, total bili is 0.8, AST is 26, ALT is 30, alkaline phosphatase 89, total protein is 8.0. He is being seen by infectious disease, urology. He is currently on IV antibiotics. He has sepsis s econdary to scrotal skin and structure infection with abscess. He has hypertension, diabetes, high c holesterol. He is on IV antibiotics. I am waiting for urology to let me know when we can comfortabl y let him get out of the hospital status post I and D of his testicle area, the scrotum, and when I c an change him to tablets by infectious disease. Continue with aggressive treatment and care. Rechec k his labs tomorrow. Increase his blood pressure pills. Jay Giraldo DO cc: [id number] TT: 05/22/2016 08:55:16 Confirmation # [id number] Dictation # [id number] en
--- NOTE | 2016-05-22 08:57 | PN ---
DATE: 05/22/2016 The patient had incision and drainage of bilateral scrotal abscesses yesterday. He is doing much bet ter, much more comfortable, afebrile. There is minimal scrotal tenderness. Normal scrotal rugae. T he packing was removed from both sides and from a urologic point of view, he is stable. When he is d ischarged on p.o. antibiotics by ID, the patient was told to follow up and see me in 1 week in the of coni. He will continue warm soaks 3-4 times a day at home. Julio Fischer MD cc: [phone] TT: 05/22/2016 08:56:36 Confirmation # [id number] Dictation # [id number] en
[2016-05-22] MEDS: Pantoprazole 40 mg EC Tab PO SCH (09:05)
[2016-05-23] MEDS: Insulin Reg-HIGH-Coverage SC SCH ×3 (08:16→17:18)
[2016-05-23 08:30] LABS: ALB/GLOB RATIO 0.9 (1.1-1.8); ALKALINE PHOSPHATASE 84 U/L (38-133); ALT/SGPT 28 U/L (7-56); AST/SGOT 37 U/L (15-59); BILIRUBIN,TOTAL 0.6 mg/dL (0.2-1.3); BLOOD UREA NITROGEN 17 mg/dL (7-21); CALCIUM 9.5 mg/dL (8.4-10.5); CARBON DIOXIDE 28 mmol/L (21-33); CHLORIDE 100 mmol/L (95-110); GFR AFRICAN-AMERICAN > 60; GLUCOSE,RANDOM 142 mg/dL (70-110); POTASSIUM 4.5 mmol/L (3.6-5.0); SODIUM 141 mmol/L (132-148); TOTAL PROTEIN 8.1 g/dL (5.8-8.3)
--- NOTE | 2016-05-23 08:30 | PN ---
DATE: 05/22/2016 The patient seen earlier in room 571, bed 2. No fevers and no chills. PHYSICAL EXAMINATION: VITAL SIGNS: Temperature is 98, blood pressure is 120/70, respiratory rate of 20. HEENT: Unremarkable. NECK: Supple. LUNGS: Have decreased breath sounds. HEART: Normal S1, S2. ABDOMEN: Soft. LABORATORY DATA: Reveals a white count of 9, hemoglobin of 12, platelets of 324. Chemistries reveal the BUN of 14, creatinine of 0.7. Urinalysis is noted. Microbiology reveals the scrotum culture is Staph aureus and sensitivity is pending. Review of the orders reveals the patient to be on Teflaro. Dr. Fischer's progress note from today is reviewed. He states that the patient had an incision and dr gustafson of the bilateral scrotal abscess yesterday, doing much better. ASSESSMENT AND PLAN: This is a 55-year-old male with sepsis secondary to scrotal skin and skin struc ture infection with Staphylococcus aureus, awaiting for the sensitivity of this Staphylococcus aureus , status post incision and drainage yesterday in a patient with diabetes and hypertension. We will c ontinue Teflaro day #4, pending identification and sensitivity. We will follow closely with you. Valerio Silva MD cc: [phone] TT: 05/22/2016 18:38:12 Confirmation # [id number] Dictation # [id number] raysa
[2016-05-23 08:33] LABS: HEMATOCRIT 38.8 % (42.0-52.0); MEAN CELL VOLUME 78.2 fL (80.0-105.0); MEAN CORPUSCULAR HEMOGLOBIN 26.2 pg (25.0-35.0); MEAN CORPUSCULAR HGB CONC 33.5 g/dl (31.0-37.0); MEAN PLATELET VOLUME 10.3 fl (7.0-11.0); RED CELL DISTRIBUTION WIDTH 13.9 % (11.5-14.5); WHITE BLOOD COUNT 8.1 10^3/ul (4.5-11.0)
[2016-05-23 08:38] VITALS: O2SAT 97
--- NOTE | 2016-05-23 09:42 | DS ---
I saw him resting in bed. He is doing better. The packing is out of his scrotum. As far as the uro logist is concerned, he can be discharged. He is still on IV antibiotics for his scrotal cellulitis, abscess, hypertension, diabetes - so he still has some issues going on but he is doing better. He i s feeling better. OBJECTIVE: VITAL SIGNS: 98.1 temp, 72 pulse, 128/76 blood pressure, 20 respiratory rate, 95% O2 sat on room air . HEENT: Head is atraumatic, normocephalic. Throat is moist. NECK: Supple. HEART: Regular rate. LUNGS: Clear to auscultation. ABDOMEN: Soft, nontender, positive bowel sounds, obese. EXTREMITIES: No edema. The scrotum is less swollen and less red; finishing machine tender but not as bad. MEDICATIONS: He is on ceftaroline, Ecotrin, Glucophage, insulin, Januvia, morphine, Norvasc, Protoni x, Tenormin, and Zestril. LABORATORY DATA: He has a 9 white count, 12.9 hemoglobin, 38.4 hematocrit with 324 platelets. Chemi stry is not back yet. Last blood sugar is 151. Yesterday's chemistry was very good. I am hoping we change him to p.o. tablets today by infectious disease for antibiotics and discharge him on his regu lar home medication plus antibiotics for a week. He will follow up with his urologist and Dr. Giraldo in the office. My plan is to try and discharge him today if it is okay with infectious disease. The patient is here for cellulitis and abscess of his scrotum. Jay Giraldo DO cc: [phone] TT: 05/23/2016 09:42:11 raysa
--- NOTE | 2016-05-23 10:13 | PN ---
DATE: 05/23/2016 The patient's culture that I took at the time of the drainage of his bilateral abscess grew heavy jessica wth of Staph aureus. The patient is afebrile, comfortable. The nurses were instructed to call ID an d ask them what antibiotic they would like him discharged on, and for how long. The patient will fol low up with me in the office in approximately 10 days. His white count is now 8000. He is afebrile and comfortable. There is minimal drainage from the wou nd. The scrotum looks fine. Julio Fischer MD cc: [phone] TT: 05/23/2016 10:12:04 Confirmation # [id number] Dictation # [id number] jn
[2016-05-23] MEDS: Pantoprazole 40 mg EC Tab PO SCH (10:50)
--- NOTE | 2016-05-23 14:39 | PN ---
DATE: 05/23/2016 The patient seen earlier today. He is doing well. No fevers and no chills. No nausea or vomiting. PHYSICAL EXAMINATION: VITAL SIGNS: Temperature is 98, blood pressure is 120/70, respiratory rate 16. HEENT: Unremarkable. NECK: Supple. LUNGS: Have decreased breath sounds. HEART: Normal S1, S2. ABDOMEN: Soft, nontender. GENITOURINARY: The scrotum is much improved. Minimal drainage from the left scrotum and minimal brooke inage from the right scrotum LABORATORY EXAMINATION: Reveals sensitive Staph aureus. ASSESSMENT AND PLAN: This is a 55-year-old male who was seen earlier this morning with sepsis second shane to scrotal skin and skin soft tissue infection with sensitive Staphylococcus. May switch to p.o. antibiotics. Follow up with Dr. Fischer as outpatient. Valerio Silva MD cc: [phone] TT: 05/23/2016 14:39:04 Confirmation # [id number] Dictation # [id number] marie
[2016-05-23 17:05] VITALS: BP 126/84; PULSE 73; RESP 16; TEMP 98.2
== END 2016-05-23 18:21 | disposition home or self-care (01) | DRG 872 ==
LOC: ED 13:53 → ERH 16:49 → 5RSO 20:20
PROVIDERS: ADMIT Family Medicine; ATTEND Family Medicine
PROC: 0V950ZX Drainage of Scrotum, Open Approach, Diagnostic (ICD-10-PCS; principal; 2016-05-21)
DX: A41.9 Sepsis, unspecified organism (principal); N49.2 Inflammatory disorders of scrotum; B95.61 Methicillin susceptible Staphylococcus aureus infection as the cause of diseases classified elsewhere; I10 Essential (primary) hypertension; E11.9 Type 2 diabetes mellitus without complications; E78.5 Hyperlipidemia, unspecified; E66.9 Obesity, unspecified; E78.00 Pure hypercholesterolemia, unspecified; F17.210 Nicotine dependence, cigarettes, uncomplicated; Z79.82 Long term (current) use of aspirin; Z79.84 Long term (current) use of oral hypoglycemic drugs; Z68.38 Body mass index [BMI] 38.0-38.9, adult